=== PATIENT | male | born 1965 | race Caucasian/White ===

== ENCOUNTER 2020-01-11 07:25 | Outpatient (REF) | payer OTHER, SELFPAY ==
[2020-01-11 07:51] LABS: MANUAL DIFF FLAG NO
[2020-01-11 07:56] LABS: Basophils Absolute Auto 0.1 X10*3/uL (0.0-0.2); Basophils Percent Auto 0.4 % (0-2); Eosinophils Absolute Auto 0.7 X10*3/uL (0.0-0.4); Hematocrit 45.1 % (42-52); Hemoglobin 15.8 g/dl (14.0-18.0); Imm Gran Abs Auto 0.05 X10*3/uL (0.00-0.03); Imm Gran Pct Auto 0.4 % (0.0-0.4); Lymphocytes Absolute Auto 2.4 X10*3/uL (1.2-4.9); Mean Corpuscular Hemoglobin 31.7 pg (27.0-33.0); Mean Corpuscular Volume 90.4 fL (80-98); Mean Platelet Volume 9.9 fL (9.4-12.4); Monocytes Absolute Auto 1.1 X10*3/uL (0.1-1.2); Monocytes Percent Auto 9.9 % (2-11); Neutrophils Absolute Auto 7.2 X10*3/uL (2.0-8.3); Neutrophils Percent Auto 62.3 % (45-73); Platelet Count 237 X10*3/uL (160-400); Red Blood Count 4.99 X10*6/uL (4.60-5.80); Red Cell Distribution Width 12.6 % (11.0-16.0); White Blood Count 11.5 X10*3/uL (4.8-10.8)
[2020-01-11 08:19] LABS: Alanine Aminotransferase 39 U/L (0-40); Albumin Level 4.3 g/dL (3.5-5.0); Alkaline Phosphatase 79 U/L (39-117); Anion Gap 11 (12-20); Aspartate Amino Transferase 24 U/L (5-37); Bilirubin Total 0.5 mg/dL (0.0-1.0); Blood Urea Nitrogen 17 mg/dL (9-16); C Reactive Protein 0.11 mg/dL (< or = 0.50); Calcium 8.8 mg/dL (8.4-10.2); Carbon Dioxide 25 mmol/L (22-29); Chloride 106 mmol/L (96-108); Estimated Glomerular Filt Rate > 60; Glucose Random 110 mg/dL (60-115); Potassium 3.9 mmol/l (3.3-5.1); Sodium 138 mmol/L (135-145); Total Protein 6.5 g/dL (6.5-8.0)
== END 2020-01-11 07:26 | disposition home or self-care (01) ==
LOC: HO.LAB 07:25
PROVIDERS: PCP Family Medicine; Visit Provider Student in an Organized Health Care Education/Training Program
DX: M05.79 Rheumatoid arthritis with rheumatoid factor of multiple sites without organ or systems involvement (principal); Z79.899 Other long term (current) drug therapy; D47.2 Monoclonal gammopathy; M17.0 Bilateral primary osteoarthritis of knee
CPT/HCPCS: 36415; 80053; 85025; 86140

== ENCOUNTER → 2020-01-13 08:51 | Outpatient (BNVA) | payer OTHER, SELFPAY | PROVIDERS: PCP Family Medicine; Referring Provider Family Medicine; Visit Provider Student in an Organized Health Care Education/Training Program | DX: M05.9 Rheumatoid arthritis with rheumatoid factor, unspecified (principal); D47.2 Monoclonal gammopathy; M17.0 Bilateral primary osteoarthritis of knee; Z79.899 Other long term (current) drug therapy | CPT/HCPCS: 99214 ==

== ENCOUNTER → 2020-03-28 09:21 | Outpatient (BNVA) | payer OTHER, SELFPAY | PROVIDERS: PCP Family Medicine; Visit Provider Orthopaedic Surgery | DX: M17.0 Bilateral primary osteoarthritis of knee (principal) | CPT/HCPCS: 20610; 99212; J1040 ==

== ENCOUNTER 2020-04-12 07:39 | Outpatient (REF) | payer OTHER, SELFPAY ==
[2020-04-12 08:17] LABS: MANUAL DIFF FLAG NO
[2020-04-12 08:22] LABS: Basophils Absolute Auto 0.1 X10*3/uL (0.0-0.2); Basophils Percent Auto 1.2 % (0-2); Eosinophils Absolute Auto 0.3 X10*3/uL (0.0-0.4); Eosinophils Percent Auto 6.5 % (0-4); Hematocrit 44.3 % (42-52); Hemoglobin 15.4 g/dl (14.0-18.0); Imm Gran Abs Auto 0.01 X10*3/uL (0.00-0.03); Imm Gran Pct Auto 0.2 % (0.0-0.4); Lymphocytes Absolute Auto 1.7 X10*3/uL (1.2-4.9); Mean Corpuscular HGB Conc 34.8 g/dl (31.0-36.0); Mean Corpuscular Hemoglobin 31.6 pg (27.0-33.0); Mean Corpuscular Volume 90.8 fL (80-98); Mean Platelet Volume 9.7 fL (9.4-12.4); Monocytes Absolute Auto 0.5 X10*3/uL (0.1-1.2); Monocytes Percent Auto 11.6 % (2-11); Neutrophils Absolute Auto 1.8 X10*3/uL (2.0-8.3); Neutrophils Percent Auto 40.5 % (45-73); Platelet Count 251 X10*3/uL (160-400); Red Blood Count 4.88 X10*6/uL (4.60-5.80); White Blood Count 4.3 X10*3/uL (4.8-10.8)
[2020-04-12 09:24] LABS: Alanine Aminotransferase 46 U/L (0-40); Albumin Level 4.3 g/dL (3.5-5.0); Alkaline Phosphatase 60 U/L (39-117); Anion Gap 15 (12-20); Aspartate Amino Transferase 25 U/L (5-37); Bilirubin Total 0.7 mg/dL (0.0-1.0); Blood Urea Nitrogen 22 mg/dL (9-16); C Reactive Protein < 0.02 mg/dL (< or = 0.50); Calcium 8.8 mg/dL (8.4-10.2); Carbon Dioxide 21 mmol/L (22-29); Chloride 107 mmol/L (96-108); Estimated Glomerular Filt Rate > 60; Glucose Random 108 mg/dL (60-115); Potassium 4.1 mmol/l (3.3-5.1); Sodium 139 mmol/L (135-145); Total Protein 6.7 g/dL (6.5-8.0)
[2020-04-12 09:36] LABS: Erythrocyte Sedimentation Rate 1 MM/HR (0-15)
== END 2020-04-12 07:40 | disposition home or self-care (01) ==
LOC: HO.LAB 07:39
PROVIDERS: PCP Family Medicine; Visit Provider Student in an Organized Health Care Education/Training Program
DX: M05.9 Rheumatoid arthritis with rheumatoid factor, unspecified (principal)
CPT/HCPCS: 36415; 80053; 85025; 85652; 86140

== ENCOUNTER → 2020-05-09 13:42 | Outpatient (BNVA) | payer OTHER, SELFPAY | PROVIDERS: PCP Family Medicine; Visit Provider Student in an Organized Health Care Education/Training Program | DX: M05.9 Rheumatoid arthritis with rheumatoid factor, unspecified (principal); D47.2 Monoclonal gammopathy; M17.0 Bilateral primary osteoarthritis of knee | CPT/HCPCS: 99212 ==

== ENCOUNTER 2020-06-26 10:55 | Outpatient (REF) | payer OTHER, SELFPAY ==
--- NOTE | ~2020-06-26 | XR_ITS ---
EXAMINATION: BILATERAL KNEE X-RAY CLINICAL INFORMATION: Pain COMPARISON: Previous exams September 2019 TECHNIQUE: 3 views of each knee FINDINGS: Right: Bone alignment is normal. No fracture or dislocation is seen. There is mild arthritis at the lateral femoral tibial and patellofemoral joints with joint space narrowing and osteophyte formation. There is no joint effusion. There may be a slight lateral tilt of the patella. There are multiple surgical clips about the knee. Left: Bone alignment is normal. No fracture or dislocation is seen. There is mild arthritis at the lateral femoral tibial and patellofemoral joints with joint space narrowing and osteophyte formation. There is no joint effusion. There may be a slight lateral tilt of the patella. There are soft tissue calcifications projecting over the medial patellofemoral joint seen on the sunrise view. This is new from previous exam. XR/XR knee RT 2V IMPRESSION: Bilateral arthritis.
--- NOTE | ~2020-06-26 | XR_ITS ---
EXAMINATION: BILATERAL KNEE X-RAY CLINICAL INFORMATION: Pain COMPARISON: Previous exams September 2019 TECHNIQUE: 3 views of each knee FINDINGS: Right: Bone alignment is normal. No fracture or dislocation is seen. There is mild arthritis at the lateral femoral tibial and patellofemoral joints with joint space narrowing and osteophyte formation. There is no joint effusion. There may be a slight lateral tilt of the patella. There are multiple surgical clips about the knee. Left: Bone alignment is normal. No fracture or dislocation is seen. There is mild arthritis at the lateral femoral tibial and patellofemoral joints with joint space narrowing and osteophyte formation. There is no joint effusion. There may be a slight lateral tilt of the patella. There are soft tissue calcifications projecting over the medial patellofemoral joint seen on the sunrise view. This is new from previous exam. XR/XR knee standing BI IMPRESSION: Bilateral arthritis.
--- NOTE | ~2020-06-26 | XR_ITS ---
EXAMINATION: BILATERAL KNEE X-RAY CLINICAL INFORMATION: Pain COMPARISON: Previous exams September 2019 TECHNIQUE: 3 views of each knee FINDINGS: Right: Bone alignment is normal. No fracture or dislocation is seen. There is mild arthritis at the lateral femoral tibial and patellofemoral joints with joint space narrowing and osteophyte formation. There is no joint effusion. There may be a slight lateral tilt of the patella. There are multiple surgical clips about the knee. Left: Bone alignment is normal. No fracture or dislocation is seen. There is mild arthritis at the lateral femoral tibial and patellofemoral joints with joint space narrowing and osteophyte formation. There is no joint effusion. There may be a slight lateral tilt of the patella. There are soft tissue calcifications projecting over the medial patellofemoral joint seen on the sunrise view. This is new from previous exam. XR/XR knee LT 2V IMPRESSION: Bilateral arthritis.
== END 2020-06-26 10:56 | disposition home or self-care (01) ==
LOC: HO.HOSX 10:55
PROVIDERS: Visit Provider Orthopaedic Surgery
DX: Z13.89 Encounter for screening for other disorder (principal)

== ENCOUNTER → 2020-06-28 08:22 | Outpatient (BNVA) | payer OTHER, SELFPAY | PROVIDERS: Visit Provider Orthopaedic Surgery | DX: M17.0 Bilateral primary osteoarthritis of knee (principal) | CPT/HCPCS: 73560; 99212 ==

== ENCOUNTER → 2020-07-18 08:02 | Outpatient (BNVA) | payer OTHER, MEDICARE, SELFPAY | PROVIDERS: Visit Provider Orthopaedic Surgery | DX: M17.0 Bilateral primary osteoarthritis of knee (principal) | CPT/HCPCS: 20610; 99212; J7318 ==

== ENCOUNTER 2020-07-31 07:47 | Outpatient (REF) | payer MEDICARE, SELFPAY ==
[2020-07-31 08:29] LABS: MANUAL DIFF FLAG NO
[2020-07-31 08:34] LABS: Basophils Absolute Auto 0.1 X10*3/uL (0.0-0.2); Basophils Percent Auto 1.2 % (0-2); Eosinophils Absolute Auto 0.3 X10*3/uL (0.0-0.4); Eosinophils Percent Auto 5.5 % (0-4); Hematocrit 46.7 % (42-52); Hemoglobin 16.2 g/dl (14.0-18.0); Imm Gran Abs Auto 0.01 X10*3/uL (0.00-0.03); Imm Gran Pct Auto 0.2 % (0.0-0.4); Lymphocytes Absolute Auto 2.1 X10*3/uL (1.2-4.9); Lymphocytes Percent Auto 42.1 % (20-40); Mean Corpuscular HGB Conc 34.7 g/dl (31.0-36.0); Mean Corpuscular Hemoglobin 31.9 pg (27.0-33.0); Mean Corpuscular Volume 91.9 fL (80-98); Mean Platelet Volume 9.8 fL (9.4-12.4); Monocytes Absolute Auto 0.6 X10*3/uL (0.1-1.2); Monocytes Percent Auto 11.7 % (2-11); Neutrophils Absolute Auto 1.9 X10*3/uL (2.0-8.3); Neutrophils Percent Auto 39.3 % (45-73); Platelet Count 257 X10*3/uL (160-400); Red Blood Count 5.08 X10*6/uL (4.60-5.80); Red Cell Distribution Width 11.9 % (11.0-16.0); White Blood Count 4.9 X10*3/uL (4.8-10.8)
[2020-07-31 09:03] LABS: Alanine Aminotransferase 48 U/L (0-40); Albumin Level 4.5 g/dL (3.5-5.0); Alkaline Phosphatase 71 U/L (39-117); Anion Gap 13 (12-20); Aspartate Amino Transferase 33 U/L (5-37); Bilirubin Total 0.7 mg/dL (0.0-1.0); Blood Urea Nitrogen 15 mg/dL (9-16); C Reactive Protein 0.02 mg/dL (< or = 0.50); Calcium 9.6 mg/dL (8.4-10.2); Carbon Dioxide 26 mmol/L (22-29); Chloride 106 mmol/L (96-108); Estimated Glomerular Filt Rate > 60; Glucose Random 105 mg/dL (60-115); Potassium 4.5 mmol/L (3.3-5.1); Sodium 140 mmol/L (135-145); Total Protein 6.9 g/dL (6.5-8.0)
[2020-07-31 09:26] LABS: Erythrocyte Sedimentation Rate 1 MM/HR (0-15)
[2020-08-01 22:02] LABS: PES - Abn Protein Band 1 0.2 g/dL (NONE DETECTED); Prot Elec - Albumin 4.6 g/dL (3.8-4.8); Prot Elec - Alpha1 0.2 g/dL (0.2-0.3); Prot Elec - Alpha2 0.5 g/dL (0.5-0.9); Prot Elec - Beta 1 0.4 g/dL (0.4-0.6); Prot Elec - Beta 2 0.2 g/dL (0.2-0.5); Prot Elec - Gamma 0.9 g/dL (0.8-1.7); Prot Elec - Total Protein 6.7 g/dL (6.1-8.1)
[2020-08-02 11:17] LABS: IgA <5 mg/dL (47-310); IgG 957 mg/dL (600-1640); IgM 99 mg/dL (50-300)
[2020-08-02 15:46] LABS: PEU-Protein Creat Ratio Rand 0.085 (0.022-0.128); PEU-Rand. Prot/Creat Ratio 85 mg/g creat (22-128); PEU-Random Ur. Gamma Globulin 0 %; PEU-Random Urine A1 Globulin 0 %; PEU-Random Urine A2 Globulin 0 %; PEU-Random Urine Albumin 100 %; PEU-Random Urine Beta Globulin 0 %; PEU-Random Urine Creatinine 47 mg/dL (20-320); PEU-Random Urine Protein 4 mg/dL (5-25)
[2020-08-03 20:17] LABS: Kappa Light Chain, Free Serum 10.9 mg/L (3.3-19.4); Lambda Light Chain, Free Serum 112.8 mg/L (5.7-26.3)
== END 2020-07-31 07:48 | disposition home or self-care (01) ==
LOC: HO.LAB 07:47
PROVIDERS: Visit Provider Student in an Organized Health Care Education/Training Program
DX: M05.9 Rheumatoid arthritis with rheumatoid factor, unspecified (principal); D47.2 Monoclonal gammopathy
CPT/HCPCS: 80053; 82570; 82784; 83520; 84155; 84156; 84165; 84166; 85025; 85652; 86140; 86334; 86335

== ENCOUNTER 2020-08-08 08:11 | Outpatient (REF) | payer MEDICARE, SELFPAY ==
--- NOTE | ~2020-08-08 | XR_ITS ---
EXAMINATION: XR CERVICAL SPINE CLINICAL INFORMATION: Rheumatoid arthritis with rheumatoid factor COMPARISON: None TECHNIQUE: 3 views of the cervical spine were obtained. FINDINGS: There is curvature of the lower cervical and upper thoracic spine to the right. Bone alignment is otherwise normal. No fracture or dislocation is seen. There is degenerative spondylosis at from to C6-C7. There is degenerative disc disc disease at C5-C6 and C6-C7. There are degenerative changes at the C1 dens articulation. No erosions are seen. Prevertebral soft tissues are normal. XR/XR cervical spine 4V IMPRESSION: Curvature of the lower cervical and upper thoracic spine to the right. Multilevel degenerative spondylosis and degenerative disc disease. No erosive changes seen.
== END 2020-08-08 08:12 | disposition home or self-care (01) ==
LOC: HO.XRAY 08:11
PROVIDERS: PCP Family Medicine; Visit Provider Student in an Organized Health Care Education/Training Program
DX: M05.9 Rheumatoid arthritis with rheumatoid factor, unspecified (principal); D47.2 Monoclonal gammopathy; Z79.899 Other long term (current) drug therapy
CPT/HCPCS: 72050; 99212

== ENCOUNTER 2020-08-11 07:18 | Outpatient (REF) | payer MEDICARE, SELFPAY ==
--- NOTE | ~2020-08-11 | MR_ITS ---
MR CERVICAL SPINE WITHOUT CONTRAST CLINICAL INFORMATION: Rheumatoid arthritis with rheumatoid factor. COMPARISON: Cervical spine radiographs 08/08/2020. TECHNIQUE: MRI of the cervical spine was obtained using routine sequences without contrast. FINDINGS: Straightening of the cervical lordosis. Mild anterior subluxation of C4 on C5. Moderate disc volume loss at C5-C6 and C6-C7. There is no bone marrow edema. There are no acute fractures. The vertebral body heights are maintained. The craniocervical junction is unremarkable. Cervical arterial flow voids are maintained. There is no cord signal abnormality. There are no significant soft tissue findings. Partially imaged intracranial compartment is unremarkable. C2-C3: Shallow central disc protrusion mildly narrows the central canal. Uncovertebral joint spurring and facet arthropathy result in mild bilateral foraminal encroachment. C3-C4: Disc osteophyte mildly narrows the central canal. Uncovertebral joint hypertrophy and hypertrophic facet arthropathy result in moderate to severe bilateral foraminal stenosis. C4-C5: Shallow central disc protrusion flattens the ventral cord and mildly narrows the central canal. Uncovertebral joint hypertrophy and hypertrophic facet arthropathy result in severe right and moderate to severe left foraminal stenosis. C5-C6: Disc osteophyte and ligamentum flavum thickening result in moderate to severe central canal stenosis and flattening of the cord. Uncovertebral joint hypertrophy and hypertrophic facet arthropathy result in severe bilateral foraminal stenosis. C6-C7: Disc osteophyte and ligamentum flavum thickening result in moderate to severe central canal stenosis and flattening of the cord. Uncovertebral joint hypertrophy and hypertrophic facet arthropathy result in severe bilateral foraminal stenosis. C7-T1: A left paracentral disc protrusion effaces the left axillary recess. Central canal is patent and there is no foraminal stenosis. MR/MR cervical spine wo con IMPRESSION: Advanced multilevel cervical spondylosis, greatest at C5-C6 and C6-C7 with multifactorial degenerative changes resulting in moderate to severe central canal stenosis, mass effect on the cervical cord, and severe bilateral foraminal stenosis at both of these levels. Varying degrees of moderate to severe foraminal stenosis throughout the cervical spine as described. At C7-T1, a left paracentral disc protrusion effaces the left axillary recess.
== END 2020-08-11 07:19 | disposition home or self-care (01) ==
LOC: HO.MRI 07:18
PROVIDERS: Visit Provider Student in an Organized Health Care Education/Training Program
DX: M05.9 Rheumatoid arthritis with rheumatoid factor, unspecified (principal)
CPT/HCPCS: 72141

== ENCOUNTER 2020-11-01 07:12 | Outpatient (REF) | payer MEDICARE, SELFPAY ==
[2020-11-01 08:25] LABS: MANUAL DIFF FLAG NO
[2020-11-01 08:31] LABS: Basophils Absolute Auto 0.1 X10*3/uL (0.0-0.2); Eosinophils Absolute Auto 0.2 X10*3/uL (0.0-0.4); Eosinophils Percent Auto 4.2 % (0-4); Hematocrit 44.4 % (42-52); Hemoglobin 15.6 g/dl (14.0-18.0); Imm Gran Abs Auto 0.02 X10*3/uL (0.00-0.03); Imm Gran Pct Auto 0.4 % (0.0-0.4); Lymphocytes Absolute Auto 2.2 X10*3/uL (1.2-4.9); Lymphocytes Percent Auto 43.5 % (20-40); Mean Corpuscular HGB Conc 35.1 g/dl (31.0-36.0); Mean Corpuscular Hemoglobin 31.9 pg (27.0-33.0); Mean Corpuscular Volume 90.8 fL (80-98); Mean Platelet Volume 10.3 fL (9.4-12.4); Monocytes Absolute Auto 0.6 X10*3/uL (0.1-1.2); Monocytes Percent Auto 12.7 % (2-11); Neutrophils Absolute Auto 1.9 X10*3/uL (2.0-8.3); Neutrophils Percent Auto 38.2 % (45-73); Platelet Count 252 X10*3/uL (160-400); Red Blood Count 4.89 X10*6/uL (4.60-5.80); Red Cell Distribution Width 11.9 % (11.0-16.0)
[2020-11-01 08:51] LABS: Alanine Aminotransferase 37 U/L (0-40); Albumin Level 4.3 g/dL (3.5-5.0); Alkaline Phosphatase 68 U/L (39-117); Anion Gap 12 (12-20); Aspartate Amino Transferase 28 U/L (5-37); Bilirubin Total 0.7 mg/dL (0.0-1.0); Blood Urea Nitrogen 20 mg/dL (9-16); C Reactive Protein 0.02 mg/dL (< or = 0.50); Carbon Dioxide 25 mmol/L (22-29); Chloride 107 mmol/L (96-108); Estimated Glomerular Filt Rate > 60; Glucose Random 101 mg/dL (60-115); Potassium 4.2 mmol/L (3.3-5.1); Sodium 140 mmol/L (135-145); Total Protein 6.5 g/dL (6.5-8.0)
[2020-11-01 09:15] LABS: Erythrocyte Sedimentation Rate 1 MM/HR (0-15)
== END 2020-11-01 07:13 | disposition home or self-care (01) ==
LOC: HO.LAB 07:12
PROVIDERS: Visit Provider Student in an Organized Health Care Education/Training Program
DX: M05.9 Rheumatoid arthritis with rheumatoid factor, unspecified (principal)
CPT/HCPCS: 36415; 80053; 85025; 85652; 86140

== ENCOUNTER → 2020-11-10 07:41 | Outpatient (BNVA) | payer OTHER, MEDICARE, SELFPAY | PROVIDERS: PCP Family Medicine; Visit Provider Student in an Organized Health Care Education/Training Program | DX: M05.9 Rheumatoid arthritis with rheumatoid factor, unspecified (principal); D47.2 Monoclonal gammopathy | CPT/HCPCS: 99212 ==

== ENCOUNTER 2021-02-06 07:12 | Outpatient (REF) | payer MEDICARE, SELFPAY ==
[2021-02-06 07:38] LABS: MANUAL DIFF FLAG NO
[2021-02-06 08:06] LABS: Basophils Absolute Auto 0.1 X10*3/uL (0.0-0.2); Basophils Percent Auto 1.1 % (0-2); Eosinophils Absolute Auto 0.2 X10*3/uL (0.0-0.4); Eosinophils Percent Auto 4.2 % (0-4); Hematocrit 46.9 % (42.0-52.0); Hemoglobin 16.3 g/dl (14.0-18.0); Imm Gran Abs Auto 0.01 X10*3/uL (0.00-0.03); Imm Gran Pct Auto 0.2 % (0.0-0.4); Lymphocytes Absolute Auto 2.2 X10*3/uL (1.2-4.9); Lymphocytes Percent Auto 46.1 % (20-40); Mean Corpuscular HGB Conc 34.8 g/dl (31.0-36.0); Mean Corpuscular Hemoglobin 32.1 pg (27.0-33.0); Mean Corpuscular Volume 92.5 fL (80.0-98.0); Mean Platelet Volume 10.1 fL (9.4-12.4); Monocytes Absolute Auto 0.6 X10*3/uL (0.1-1.2); Monocytes Percent Auto 12.9 % (2-11); Neutrophils Absolute Auto 1.68 x10*3/uL (2.0-8.3); Neutrophils Percent Auto 35.5 % (45-73); Platelet Count 251 X10*3/uL (160-400); Red Blood Count 5.07 X10*6/uL (4.60-5.80); Red Cell Distribution Width 11.9 % (11.0-16.0); White Blood Count 4.7 X10*3/uL (4.8-10.8)
[2021-02-06 08:55] LABS: Erythrocyte Sedimentation Rate 1 MM/HR (0-15)
[2021-02-06 09:13] LABS: Alanine Aminotransferase 44 U/L (0-40); Albumin Level 4.5 g/dL (3.5-5.0); Alkaline Phosphatase 63 U/L (39-117); Anion Gap 11 (12-20); Aspartate Amino Transferase 28 U/L (5-37); Bilirubin Total 0.7 mg/dL (0.0-1.0); Blood Urea Nitrogen 23 mg/dL (9-16); C Reactive Protein 0.02 mg/dL (< or = 0.50); Calcium 9.5 mg/dL (8.4-10.2); Carbon Dioxide 27 mmol/L (22-29); Chloride 105 mmol/L (96-108); Estimated Glomerular Filt Rate > 60; Glucose Random 105 mg/dL (60-115); Potassium 4.4 mmol/L (3.3-5.1); Sodium 139 mmol/L (135-145); Total Protein 6.7 g/dL (6.5-8.0)
== END 2021-02-06 07:13 | disposition home or self-care (01) ==
LOC: HO.LAB 07:12
PROVIDERS: PCP Family Medicine; Visit Provider Student in an Organized Health Care Education/Training Program
DX: M05.9 Rheumatoid arthritis with rheumatoid factor, unspecified (principal)
CPT/HCPCS: 36415; 80053; 85025; 85652; 86140

== ENCOUNTER → 2021-02-14 07:51 | Outpatient (BNVA) | payer MEDICARE, SELFPAY | PROVIDERS: PCP Family Medicine; Visit Provider Nurse Practitioner Family | DX: M05.9 Rheumatoid arthritis with rheumatoid factor, unspecified (principal); D47.2 Monoclonal gammopathy | CPT/HCPCS: 99212 ==

== ENCOUNTER 2021-04-17 07:22 | Outpatient (REF) | payer MEDICARE, SELFPAY ==
[2021-04-17 07:46] LABS: MANUAL DIFF FLAG NO
[2021-04-17 07:55] LABS: Basophils Percent Auto 0.8 % (0-2); Eosinophils Absolute Auto 0.3 X10*3/uL (0.0-0.4); Eosinophils Percent Auto 5.5 % (0-4); Hematocrit 44.9 % (42.0-52.0); Hemoglobin 15.8 g/dl (14.0-18.0); Imm Gran Abs Auto 0.02 X10*3/uL (0.00-0.03); Imm Gran Pct Auto 0.4 % (0.0-0.4); Lymphocytes Percent Auto 41.6 % (20-40); Mean Corpuscular HGB Conc 35.2 g/dl (31.0-36.0); Mean Corpuscular Hemoglobin 32.3 pg (27.0-33.0); Mean Corpuscular Volume 91.8 fL (80.0-98.0); Mean Platelet Volume 9.8 fL (9.4-12.4); Monocytes Absolute Auto 0.6 X10*3/uL (0.1-1.2); Monocytes Percent Auto 12.7 % (2-11); Neutrophils Absolute Auto 1.8 x10*3/uL (2.0-8.3); Platelet Count 227 X10*3/uL (160-400); Red Blood Count 4.89 X10*6/uL (4.60-5.80); White Blood Count 4.7 X10*3/uL (4.8-10.8)
[2021-04-17 08:16] LABS: Alanine Aminotransferase 35 U/L (0-40); Albumin Level 4.2 g/dL (3.5-5.0); Alkaline Phosphatase 60 U/L (39-117); Anion Gap 10 (12-20); Aspartate Amino Transferase 23 U/L (5-37); Bilirubin Total 0.7 mg/dL (0.0-1.0); Blood Urea Nitrogen 22 mg/dL (9-16); C Reactive Protein < 0.02 mg/dL (< or = 0.50); Calcium 9.2 mg/dL (8.4-10.2); Carbon Dioxide 27 mmol/L (22-29); Chloride 108 mmol/L (96-108); Estimated Glomerular Filt Rate > 60; Glucose Random 109 mg/dL (60-115); Potassium 4.2 mmol/L (3.3-5.1); Sodium 141 mmol/L (135-145); Total Protein 6.5 g/dL (6.5-8.0)
[2021-04-17 08:37] LABS: HBc Num1 0.74 S/CO (0.00-0.79); HBsAGNum1 0.19 S/CO (0.00-0.99); Hepatitis B Core Antibody Nonreactive (Nonreactive); Hepatitis B Surface Antigen Negative (Negative); ~Hepatitis C Antibody Nonreactive (Nonreactive)
[2021-04-17 08:41] LABS: ~Hepatitis B Surface Antibody NONREACTIVE (Nonreactive)
[2021-04-17 09:22] LABS: Erythrocyte Sedimentation Rate 2 MM/HR (0-15)
[2021-04-18 07:39] LABS: HBS Num1 0.16 mIU/mL (0-7.99); Hepatitis A Antibody IgM 0.19 Index (0-0.79); ~Hepatitis A Antibody IgM Nonreactive (Nonreactive)
[2021-04-19 20:17] LABS: TS Negative Control Passed; TS Panel A 0; TS Panel B 0; TS Positive Control Passed; TSpotTB Negative (Negative)
== END 2021-04-17 07:23 | disposition home or self-care (01) ==
LOC: HO.LAB 07:22
PROVIDERS: PCP Family Medicine; Visit Provider Nurse Practitioner Family
DX: D47.2 Monoclonal gammopathy (principal); M05.9 Rheumatoid arthritis with rheumatoid factor, unspecified; Z11.3 Encounter for screening for infections with a predominantly sexual mode of transmission
CPT/HCPCS: 36415; 80053; 85025; 85652; 86140; 86481; 86704; 86706; 86709; 86803; 87340

== ENCOUNTER → 2021-05-17 07:51 | Outpatient (BNVA) | payer MEDICARE, SELFPAY | PROVIDERS: PCP Family Medicine; Visit Provider Nurse Practitioner Family | DX: M05.9 Rheumatoid arthritis with rheumatoid factor, unspecified (principal); D47.2 Monoclonal gammopathy | CPT/HCPCS: 99212 ==

== ENCOUNTER 2021-08-07 07:33 | Outpatient (REF) | payer MEDICARE, SELFPAY ==
[2021-08-07 07:55] LABS: MANUAL DIFF FLAG NO
[2021-08-07 08:19] LABS: Basophils Percent Auto 0.9 % (0-2); Eosinophils Absolute Auto 0.2 X10*3/uL (0.0-0.4); Eosinophils Percent Auto 4.2 % (0-4); Hematocrit 45.4 % (42.0-52.0); Hemoglobin 15.7 g/dl (14.0-18.0); Imm Gran Abs Auto 0.01 X10*3/uL (0.00-0.03); Imm Gran Pct Auto 0.2 % (0.0-0.4); Lymphocytes Absolute Auto 1.9 X10*3/uL (1.2-4.9); Lymphocytes Percent Auto 42.2 % (20-40); Mean Corpuscular HGB Conc 34.6 g/dl (31.0-36.0); Mean Corpuscular Hemoglobin 31.6 pg (27.0-33.0); Mean Corpuscular Volume 91.3 fL (80.0-98.0); Mean Platelet Volume 9.5 fL (9.4-12.4); Monocytes Absolute Auto 0.6 X10*3/uL (0.1-1.2); Monocytes Percent Auto 12.4 % (2-11); Neutrophils Absolute Auto 1.8 x10*3/uL (2.0-8.3); Neutrophils Percent Auto 40.1 % (45-73); Platelet Count 282 X10*3/uL (160-400); Red Blood Count 4.97 X10*6/uL (4.60-5.80); Red Cell Distribution Width 12.6 % (11.0-16.0); White Blood Count 4.5 X10*3/uL (4.8-10.8)
[2021-08-07 08:45] LABS: Alanine Aminotransferase 36 U/L (0-40); Albumin Level 4.3 g/dL (3.5-5.0); Alkaline Phosphatase 64 U/L (39-117); Anion Gap 10 (12-20); Aspartate Amino Transferase 29 U/L (5-37); Bilirubin Total 0.9 mg/dL (0.0-1.0); Blood Urea Nitrogen 19 mg/dL (9-16); C Reactive Protein 0.03 mg/dL (< or = 0.50); Calcium 9.4 mg/dL (8.4-10.2); Carbon Dioxide 26 mmol/L (22-29); Chloride 106 mmol/L (96-108); Estimated Glomerular Filt Rate > 60; Glucose Random 115 mg/dL (60-115); Potassium 4.4 mmol/L (3.3-5.1); Sodium 138 mmol/L (135-145); Total Protein 6.8 g/dL (6.5-8.0)
[2021-08-07 09:03] LABS: Erythrocyte Sedimentation Rate 1 MM/HR (0-15)
== END 2021-08-07 07:34 | disposition home or self-care (01) ==
LOC: HO.LAB 07:33
PROVIDERS: PCP Nurse Practitioner Family; Visit Provider Nurse Practitioner Family
DX: M05.9 Rheumatoid arthritis with rheumatoid factor, unspecified (principal)
CPT/HCPCS: 36415; 80053; 85025; 85652; 86140

== ENCOUNTER → 2021-08-13 07:54 | Outpatient (BNVA) | payer MEDICARE, SELFPAY | PROVIDERS: PCP Family Medicine; Visit Provider Nurse Practitioner Family | DX: M05.9 Rheumatoid arthritis with rheumatoid factor, unspecified (principal); D47.2 Monoclonal gammopathy | CPT/HCPCS: 99212 ==

== ENCOUNTER 2021-11-20 07:33 | Outpatient (REF) | payer MEDICARE, SELFPAY ==
[2021-11-20 07:49] LABS: MANUAL DIFF FLAG NO
[2021-11-20 08:05] LABS: Basophils Absolute Auto 0.1 X10*3/uL (0.0-0.2); Basophils Percent Auto 1.2 % (0-2); Eosinophils Absolute Auto 0.2 X10*3/uL (0.0-0.4); Eosinophils Percent Auto 4.4 % (0-4); Hematocrit 44.3 % (42.0-52.0); Hemoglobin 15.6 g/dl (14.0-18.0); Imm Gran Abs Auto 0.01 X10*3/uL (0.00-0.03); Imm Gran Pct Auto 0.2 % (0.0-0.4); Lymphocytes Absolute Auto 1.7 X10*3/uL (1.2-4.9); Lymphocytes Percent Auto 39.8 % (20-40); Mean Corpuscular HGB Conc 35.2 g/dl (31.0-36.0); Mean Corpuscular Hemoglobin 32.4 pg (27.0-33.0); Mean Corpuscular Volume 92.1 fL (80.0-98.0); Mean Platelet Volume 9.7 fL (9.4-12.4); Monocytes Absolute Auto 0.5 X10*3/uL (0.1-1.2); Monocytes Percent Auto 11.6 % (2-11); Neutrophils Absolute Auto 1.8 x10*3/uL (2.0-8.3); Neutrophils Percent Auto 42.8 % (45-73); Platelet Count 267 X10*3/uL (160-400); Red Blood Count 4.81 X10*6/uL (4.60-5.80); Red Cell Distribution Width 11.9 % (11.0-16.0); White Blood Count 4.3 X10*3/uL (4.8-10.8)
[2021-11-20 08:35] LABS: Alanine Aminotransferase 33 U/L (0-40); Albumin Level 4.2 g/dL (3.5-5.0); Alkaline Phosphatase 61 U/L (39-117); Anion Gap 14 (12-20); Aspartate Amino Transferase 27 U/L (5-37); Bilirubin Total 0.7 mg/dL (0.0-1.0); Blood Urea Nitrogen 21 mg/dL (9-16); C Reactive Protein < 0.02 mg/dL (< or = 0.50); Calcium 8.8 mg/dL (8.4-10.2); Carbon Dioxide 24 mmol/L (22-29); Chloride 107 mmol/L (96-108); Estimated Glomerular Filt Rate > 60; Glucose Random 100 mg/dL (60-115); Potassium 4.2 mmol/L (3.3-5.1); Sodium 141 mmol/L (135-145); Total Protein 6.6 g/dL (6.5-8.0)
[2021-11-20 08:44] LABS: Erythrocyte Sedimentation Rate 1 MM/HR (0-15)
== END 2021-11-20 07:34 | disposition home or self-care (01) ==
LOC: HO.LAB 07:33
PROVIDERS: Visit Provider Nurse Practitioner Family
DX: M05.9 Rheumatoid arthritis with rheumatoid factor, unspecified (principal)
CPT/HCPCS: 36415; 80053; 85025; 85652; 86140

== ENCOUNTER → 2021-11-26 07:54 | Outpatient (BNVA) | payer MEDICARE, SELFPAY | PROVIDERS: PCP Family Medicine; Visit Provider Nurse Practitioner Family | DX: M05.9 Rheumatoid arthritis with rheumatoid factor, unspecified (principal); M25.561 Pain in right knee; M25.562 Pain in left knee; D47.2 Monoclonal gammopathy; Z79.899 Other long term (current) drug therapy; Z79.01 Long term (current) use of anticoagulants | CPT/HCPCS: 99212 ==

== ENCOUNTER 2021-12-12 07:13 | Outpatient (REF) | payer MEDICARE, SELFPAY ==
--- NOTE | ~2021-12-12 | XR_ITS ---
EXAMINATION: XR HAND, RIGHT XR HAND, LEFT CLINICAL INFORMATION: Bilateral hand pain. COMPARISON: Bilateral hand series March 2017. TECHNIQUE: Three views of each hand. FINDINGS: RIGHT HAND: Interphalangeal Joints: 2nd DIP Joint: There is subchondral cystic change without marginal osteophytes or joint space narrowing indicative of mild osteoarthritis. 2nd and 3rd PIP Joints: There is nonuniform joint space narrowing and marginal osteophytes, slightly progressed compared to prior, indicative of [id number] osteoarthritis. IP Joint of Thumb, and 4th and 5th PIP Joints: There are small marginal osteophytes with minimal, if any, subchondral cystic change indicative of mild osteoarthritis. Metacarpophalangeal Joints: Mild osteoarthritis of the 1st metacarpophalangeal joint manifested by nonuniform joint space narrowing and small subchondral cystic changes with the degenerative changes progressed compared to prior. 3rd Metacarpophalangeal Joint: Minimal marginal osteophytes without joint space narrowing indicative of minimal arthrosis. Ossicle Distal to Ulnar Styloid: Unchanged. The remaining bones, joints and soft tissues are unremarkable. LEFT HAND: Interphalangeal Joints: There is nonuniform up to severe joint space narrowing along with marginal osteophytes and capsular ossification indicative of moderate osteoarthritis involving the 2nd, 3rd, 4th and 5th PIP joints. Less prominent mild osteoarthritis of the IP joint of the thumb with marginal osteophytes. Possible increased joint space narrowing suggestive of slight progression Metacarpophalangeal Joints: Minimal osteoarthritis of the metacarpophalangeal joint of thumb with small marginal osteophytes. No change. The remaining bones, joints and soft tissues are unremarkable. XR/XR hand LT min 3V IMPRESSION: Right Hand: Osteoarthritis involving multiple joints of the right hand with degenerative changes slightly progressed compared to prior Left Hand: Osteoarthritis of multiple joints with the degenerative changes slightly progressed compared to prior.
--- NOTE | ~2021-12-12 | XR_ITS ---
EXAMINATION: XR HAND, RIGHT XR HAND, LEFT CLINICAL INFORMATION: Bilateral hand pain. COMPARISON: Bilateral hand series March 2017. TECHNIQUE: Three views of each hand. FINDINGS: RIGHT HAND: Interphalangeal Joints: 2nd DIP Joint: There is subchondral cystic change without marginal osteophytes or joint space narrowing indicative of mild osteoarthritis. 2nd and 3rd PIP Joints: There is nonuniform joint space narrowing and marginal osteophytes, slightly progressed compared to prior, indicative of [id number] osteoarthritis. IP Joint of Thumb, and 4th and 5th PIP Joints: There are small marginal osteophytes with minimal, if any, subchondral cystic change indicative of mild osteoarthritis. Metacarpophalangeal Joints: Mild osteoarthritis of the 1st metacarpophalangeal joint manifested by nonuniform joint space narrowing and small subchondral cystic changes with the degenerative changes progressed compared to prior. 3rd Metacarpophalangeal Joint: Minimal marginal osteophytes without joint space narrowing indicative of minimal arthrosis. Ossicle Distal to Ulnar Styloid: Unchanged. The remaining bones, joints and soft tissues are unremarkable. LEFT HAND: Interphalangeal Joints: There is nonuniform up to severe joint space narrowing along with marginal osteophytes and capsular ossification indicative of moderate osteoarthritis involving the 2nd, 3rd, 4th and 5th PIP joints. Less prominent mild osteoarthritis of the IP joint of the thumb with marginal osteophytes. Possible increased joint space narrowing suggestive of slight progression Metacarpophalangeal Joints: Minimal osteoarthritis of the metacarpophalangeal joint of thumb with small marginal osteophytes. No change. The remaining bones, joints and soft tissues are unremarkable. XR/XR hand RT min 3V IMPRESSION: Right Hand: Osteoarthritis involving multiple joints of the right hand with degenerative changes slightly progressed compared to prior Left Hand: Osteoarthritis of multiple joints with the degenerative changes slightly progressed compared to prior.
[2021-12-12 08:36] LABS: TSH reflex Free T4 0.78 uIU/mL (0.32-4.0)
== END 2021-12-12 07:14 | disposition home or self-care (01) ==
LOC: HO.LAB 07:13
PROVIDERS: Visit Provider Nurse Practitioner Family
DX: M79.641 Pain in right hand (principal); M79.642 Pain in left hand; M05.9 Rheumatoid arthritis with rheumatoid factor, unspecified
CPT/HCPCS: 36415; 73130; 84443

== ENCOUNTER 2022-02-15 07:07 | Outpatient (REF) | payer OTHER, SELFPAY ==
[2022-02-15 07:19] LABS: MANUAL DIFF FLAG NO
[2022-02-15 07:41] LABS: Basophils Absolute Auto 0.1 X10*3/uL (0.0-0.2); Eosinophils Absolute Auto 0.4 X10*3/uL (0.0-0.4); Eosinophils Percent Auto 8.7 % (0-4); Hematocrit 43.3 % (42.0-52.0); Hemoglobin 15.6 g/dl (14.0-18.0); Imm Gran Abs Auto 0.01 X10*3/uL (0.00-0.03); Imm Gran Pct Auto 0.2 % (0.0-0.4); Lymphocytes Absolute Auto 2.1 X10*3/uL (1.2-4.9); Lymphocytes Percent Auto 41.3 % (20-40); Mean Corpuscular Hemoglobin 33.1 pg (27.0-33.0); Mean Corpuscular Volume 91.9 fL (80.0-98.0); Mean Platelet Volume 9.7 fL (9.4-12.4); Monocytes Absolute Auto 0.6 X10*3/uL (0.1-1.2); Monocytes Percent Auto 11.4 % (2-11); Neutrophils Absolute Auto 1.9 x10*3/uL (2.0-8.3); Neutrophils Percent Auto 37.4 % (45-73); Platelet Count 241 X10*3/uL (160-400); Red Blood Count 4.71 X10*6/uL (4.60-5.80); Red Cell Distribution Width 11.8 % (11.0-16.0); White Blood Count 5.1 X10*3/uL (4.8-10.8)
[2022-02-15 07:52] LABS: Alanine Aminotransferase 32 U/L (0-40); Aspartate Amino Transferase 24 U/L (5-37); C Reactive Protein 0.02 mg/dL (< or = 0.50); Estimated Glomerular Filt Rate > 60
[2022-02-15 08:36] LABS: Erythrocyte Sedimentation Rate 2 MM/HR (0-15)
== END 2022-02-15 07:08 | disposition home or self-care (01) ==
LOC: HO.LAB 07:07
PROVIDERS: Visit Provider Nurse Practitioner Family
DX: M05.9 Rheumatoid arthritis with rheumatoid factor, unspecified (principal); Z79.899 Other long term (current) drug therapy
CPT/HCPCS: 36415; 82565; 84450; 84460; 85025; 85652; 86140

== ENCOUNTER → 2022-03-08 09:11 | Outpatient (BNVA) | payer OTHER, SELFPAY | PROVIDERS: Visit Provider Nurse Practitioner Family | DX: M05.9 Rheumatoid arthritis with rheumatoid factor, unspecified (principal); D47.2 Monoclonal gammopathy | CPT/HCPCS: 99212 ==

== ENCOUNTER 2022-04-26 09:12 | Outpatient (REF) | payer OTHER, SELFPAY | END 2022-04-26 09:13 | disposition home or self-care (01) | LOC: HO.HOSX 09:12 | PROVIDERS: Visit Provider Physician Assistant | DX: Z13.89 Encounter for screening for other disorder (principal) ==

== ENCOUNTER 2022-04-29 11:22 | Outpatient (REF) | payer OTHER, SELFPAY ==
--- NOTE | ~2022-04-29 | XR_ITS ---
EXAMINATION: XR knee LT 2V, XR knee RT 2V, XR knee standing BI CLINICAL INFORMATION: Reason for Exam M25.569 - Pain in unspecified knee COMPARISON: None. TECHNIQUE: 2 views and standing views of the bilateral knees XR/XR knee RT 2V FINDINGS/IMPRESSION: * No acute fracture or dislocation. * Redemonstration of bilateral osteoarthritis, slightly progressed in the right knee with narrowing of the lateral tibiofemoral compartment and increased subchondral cystic changes.
--- NOTE | ~2022-04-29 | XR_ITS ---
EXAMINATION: XR knee LT 2V, XR knee RT 2V, XR knee standing BI CLINICAL INFORMATION: Reason for Exam M25.569 - Pain in unspecified knee COMPARISON: None. TECHNIQUE: 2 views and standing views of the bilateral knees XR/XR knee LT 2V FINDINGS/IMPRESSION: * No acute fracture or dislocation. * Redemonstration of bilateral osteoarthritis, slightly progressed in the right knee with narrowing of the lateral tibiofemoral compartment and increased subchondral cystic changes.
--- NOTE | ~2022-04-29 | XR_ITS ---
EXAMINATION: XR knee LT 2V, XR knee RT 2V, XR knee standing BI CLINICAL INFORMATION: Reason for Exam M25.569 - Pain in unspecified knee COMPARISON: None. TECHNIQUE: 2 views and standing views of the bilateral knees XR/XR knee standing BI FINDINGS/IMPRESSION: * No acute fracture or dislocation. * Redemonstration of bilateral osteoarthritis, slightly progressed in the right knee with narrowing of the lateral tibiofemoral compartment and increased subchondral cystic changes.
== END 2022-04-29 11:23 | disposition home or self-care (01) ==
LOC: HO.HOSX 11:22
PROVIDERS: Visit Provider Physician Assistant
DX: M17.0 Bilateral primary osteoarthritis of knee (principal)
CPT/HCPCS: 73560; 73565; 99212

== ENCOUNTER → 2022-05-02 11:20 | Outpatient (BNVA) | payer OTHER, SELFPAY | PROVIDERS: Visit Provider Physician Assistant | DX: M17.12 Unilateral primary osteoarthritis, left knee (principal); M17.11 Unilateral primary osteoarthritis, right knee | CPT/HCPCS: 20610; J7318 ==

== ENCOUNTER 2022-06-05 08:10 | Outpatient (REF) | payer OTHER, SELFPAY ==
[2022-06-05 09:49] LABS: MANUAL DIFF FLAG NO
[2022-06-05 09:54] LABS: Basophils Percent Auto 0.6 % (0-2); Eosinophils Absolute Auto 0.4 X10*3/uL (0.0-0.4); Eosinophils Percent Auto 6.5 % (0-4); Hematocrit 45.2 % (42.0-52.0); Hemoglobin 15.7 g/dl (14.0-18.0); Imm Gran Abs Auto 0.01 X10*3/uL (0.00-0.03); Imm Gran Pct Auto 0.2 % (0.0-0.4); Lymphocytes Absolute Auto 2.2 X10*3/uL (1.2-4.9); Lymphocytes Percent Auto 34.4 % (20-40); Mean Corpuscular HGB Conc 34.7 g/dl (31.0-36.0); Mean Corpuscular Hemoglobin 31.9 pg (27.0-33.0); Mean Corpuscular Volume 91.9 fL (80.0-98.0); Mean Platelet Volume 10.5 fL (9.4-12.4); Monocytes Absolute Auto 0.5 X10*3/uL (0.1-1.2); Monocytes Percent Auto 8.3 % (2-11); Neutrophils Absolute Auto 3.2 x10*3/uL (2.0-8.3); Platelet Count 292 X10*3/uL (160-400); Red Blood Count 4.92 X10*6/uL (4.60-5.80); Red Cell Distribution Width 12.2 % (11.0-16.0); White Blood Count 6.4 X10*3/uL (4.8-10.8)
[2022-06-05 10:05] LABS: Alanine Aminotransferase 26 U/L (0-40); Albumin Level 4.3 g/dL (3.5-5.0); Alkaline Phosphatase 78 U/L (39-117); Anion Gap 13 (12-20); Aspartate Amino Transferase 21 U/L (5-37); Bilirubin Total 0.6 mg/dL (0.0-1.0); Blood Urea Nitrogen 20 mg/dL (9-16); C Reactive Protein 0.15 mg/dL (< or = 0.50); Calcium 9.3 mg/dL (8.4-10.2); Carbon Dioxide 28 mmol/L (22-29); Chloride 106 mmol/L (96-108); Estimated Glomerular Filt Rate > 60; Glucose Random 119 mg/dL (60-115); Potassium 5.1 mmol/L (3.3-5.1); Sodium 142 mmol/L (135-145); Total Protein 6.8 g/dL (6.5-8.0)
[2022-06-05 10:44] LABS: Erythrocyte Sedimentation Rate 3 MM/HR (0-15)
== END 2022-06-05 08:11 | disposition home or self-care (01) ==
LOC: HO.10HDL 08:10
PROVIDERS: Visit Provider Nurse Practitioner Family
DX: M05.9 Rheumatoid arthritis with rheumatoid factor, unspecified (principal)
CPT/HCPCS: 36415; 80053; 85025; 85652; 86140

== ENCOUNTER → 2022-06-06 09:14 | Outpatient (BNVA) | payer OTHER, SELFPAY | PROVIDERS: Visit Provider Nurse Practitioner Family | DX: M05.9 Rheumatoid arthritis with rheumatoid factor, unspecified (principal); D47.2 Monoclonal gammopathy | CPT/HCPCS: 99212 ==